=== PATIENT | female | born 1960 | race Caucasian/White ===

== ENCOUNTER 2018-10-31 07:16 | Day surgery (SDC) | payer OTHER ==
[~2018-10-31] VITALS: Ht 165.1 cm; Wt 96.5 kg
[2018-10-31 07:59] VITALS: Ht 165.1 cm; Wt 96.5 kg
[2018-10-31] MEDS ORDERED: METFORMIN (08:04)
--- NOTE | 2018-10-31 08:24 | PREAC ---
Date/Time of Note Date/Time of Note DATE: 10/31/18 TIME: 08:23 Anesthesia Eval and Record Evaluation Time Pre-Procedure Interview DATE: 10/31/18 TIME: 08:23 Age 58 Sex female NPO: 8 hrs Preoperative diagnosis screening Planned procedure colonoscopy Past Medical History Past Medical History: Includes Endo: Diabetes Surgery & Anesthesia Issues Other issues Meds Anticoagulation: No Beta Jeffry within 24 hr: No Reason Beta Jeffry not given: Pt. not on B-Jeffry Reported Medications [Metformin] No Conflict Check 10/31/18 Meds reviewed: Yes Allergies Allergies Reviewed: Yes Labs/Studies Labs Reviewed: Reviewed by anesthesiologist test: N/A Studies: ECG (n/a), CXR (n/a) Pre-procedure Exam Airway: Adequate mouth opening Mallampati: Mallampati I Teeth: Normal Lung: Normal Heart: Normal ASA Physical Status ASA physical status: 2 Emergency: None Planned Anesthetic General/MAC: MAC Planned Pain Management Parenteral pain med Pre-operative Attestations Prior to commencing anesthesia and surgery, the patient was re-evaluated, there was verification of: *The patient's identity *The results of appropriate recent lab work and preoperative vital signs *The above evaluation not changing prior to induction *Anesthetic plan, risk benefits, alternative and complications discussed with patient/family; questions answered; patient/family understands, accepts and wishes to proceed. CARMINE RÍOS MD Oct 31, 2018 08:24
[2018-10-31] MEDS ORDERED: FENTAnyl 50 MCG/ML VIAL ONE (08:26)
[2018-10-31] MEDS ORDERED: PROPOFOL 20 ML ONE ×2 (08:26→08:39)
[2018-10-31 08:27] VITALS: BP 119/71; PULSE 68; RESP 12
[2018-10-31] MEDS ORDERED: ONDANSETRON 4 MG INJ IV PRN (08:30)
--- NOTE | 2018-10-31 09:21 | PAC ---
Date/Time of Note Date/Time of Note DATE: 10/31/18 TIME: 09:21 Post-Anesthesia Notes Post-Anesthesia Note Last documented vital signs Vital Signs Date Temp Pulse Resp B/P (MAP) Pulse Ox O2 O2 Flow FiO2 Time Delivery Rate 10/31/18 98.4 68 12 119/71 98 Room Air 08:27 (87) Activity: WNL Respiratory function: WNL Cardiovascular function: WNL Mental status: Baseline Pain reasonably controlled: Yes Hydration appropriate: Yes Nausea/Vomiting absent: No CARMINE RÍOS MD Oct 31, 2018 09:21
[2018-10-31 09:44] VITALS: BP 111/71; PULSE 64; RESP 16
== END 2018-10-31 14:30 | disposition home or self-care (01) ==
LOC: GIL 07:16
PROVIDERS: ATTEND Internal Medicine Gastroenterology
DX: Z12.11 Encounter for screening for malignant neoplasm of colon (principal); K29.50 Unspecified chronic gastritis without bleeding; K62.1 Rectal polyp; K64.0 First degree hemorrhoids; K57.30 Diverticulosis of large intestine without perforation or abscess without bleeding; K29.80 Duodenitis without bleeding; E11.9 Type 2 diabetes mellitus without complications
CPT/HCPCS: 43239; 45380; 82962; J3010; Z7610; 88305; 88312